=== PATIENT | female | born 1995 | race Caucasian/White ===

== ENCOUNTER 2017-12-14 22:34 | Emergency (ER) | payer SELFPAY ==
[~2017-12-14] VITALS: Ht 175.3 cm; Wt 58.0 kg
[2017-12-14 22:41] VITALS: BP 139/70; PULSE 105; RESP 18; TEMP 98.1; O2SAT 98
--- NOTE | 2017-12-14 22:58 | PD ---
HPI Chief Complaint: Seizure Time Seen by Provider: 22:45 Travel History International Travel<30 days: No Contact w/Intl Traveler<30days: No Traveled to known affect area: No History of Present Illness HPI The patient is a 22 year old female who presents to the [facility] emergency department with a history of seizure activity that was witnessed by her sister prior to arrival. The patient has no prior history of seizure disorder. The patient was witnessed to have approximately 15 seconds of generalized tonic-clonic seizure activity. The patient was noted to have a postictal state with drowsiness and confusion. Ambulance services arrived and the patient continued to be confused with a GCS of 14 and drowsiness. The patient on arrival is becoming more awake and alert and oriented. She denies having any recent headaches, neck pain, fevers or chills, cough or congestion. She denies having any other recent neurologic symptoms. She denies on review of systems having any chest pain, shortness of breath, abdominal pain, vomiting , diarrhea, or urinary symptoms. LMP: November 16, 2017 [facility] Past Medical History Narrative Medical The patient's past medical history is significant for having ovarian cyst. Medical History: Denies Significant Hx Tetanus Vaccination: Unknown Influenza Vaccination: No ?: Not LMP: 11/16/16 Past Surgical History Narrative Surgical The patient's past surgical history is reportedly none. Surgical History: No Previous Surgery Social History Alcohol Use: No Tobacco Use: Yes (One half pack per day) Substance Use: No (The patient reports that she quit using marijuana and alcohol 2-3 months ago.) Allergies-Medications (Allergen,Severity, Reaction): Coded Allergies: No Known Allergies (Verified Allergy, Unknown, 12/14/17) Reported Meds & Prescriptions Reported Meds & Active Scripts Active No Active Prescriptions or Reported Medications Review of Systems Except as stated in HPI: all other systems reviewed are Neg General / Constitutional: No: Fever Eyes: No: Visual changes HENT: No: Headaches Cardiovascular: No: Chest Pain or Discomfort Respiratory: No: Shortness of Breath Gastrointestinal: No: Abdominal Pain Genitourinary: No: Dysuria Musculoskeletal: No: Pain Skin: No Rash Neurologic: Positive: Change in Mentation, Seizures, No: Weakness, Focal Abnormalities, Slurred Speech, Sensory Disturbance Psychiatric: No: Depression Endocrine: No: Polydipsia Hematologic/Lymphatic: No: Easy Bruising Physical Exam Narrative General: The patient is a well-developed well-nourished female in no acute distress. Head and Neck exam: Head is normocephalic atraumatic. Eyes: EOMI, pupils are equal round and reactive to light. Nose: Midline septum with pink mucous membranes Mouth: Dentition unremarkable. Moist mucus membranes. Posterior oropharynx is not erythematous. No tonsillar hypertrophy. Uvula midline. Airway patent. Neck: No palpable lymphadenopathy. No nuchal rigidity. No thyromegaly. Cardiovascular: Sinus tachycardia in the low 100 without murmurs, gallops, or rubs. No pulse deficit to the extremities on simultaneous auscultation and palpation of her radial artery. Lungs: Clear to auscultation bilaterally. No wheezes, rhonchi, or rales. Abdomen: Soft, without tenderness to palpation in all 4 quadrants of the abdomen. No guarding, rebound, or rigidity. Normal bowel sounds are audible. No tenderness on palpation of McBurney's point. Negative Burciaga sign Extremities: No clubbing, cyanosis, or edema. 2+ pulses in all 4 extremities. No calf tenderness on palpation. Back: No spinous process tenderness to palpation. No costovertebral angle tenderness to palpation. Neurologic Exam: Cranial nerves 2-12 were intact on exam. Strength is 5/5 in all 4 extremities. No sensory deficits noted. The patient is oriented to person, place, time, and situation at this point. Skin Exam: No rash noted. Intact skin that is warm and dry. Data Data Last Documented VS Vital Signs Date Time Temp Pulse Resp B/P (MAP) Pulse Ox O2 Delivery O2 Flow Rate FiO2 12/14/17 23:04 98 Room Air 12/14/17 22:41 98.1 105 18 139/70 (93) Orders Orders Electrocardiogram (12/14/17 22:45) Complete Blood Count With Diff (12/14/17 22:45) Comprehensive Metabolic Panel (12/14/17 22:45) Prothrombin Time / Inr (Pt) (12/14/17 22:45) Act Partial Throm Time (Ptt) (12/14/17 22:45) Lipase (12/14/17 22:45) Urinalysis - C+S If Indicated (12/14/17 22:45) Magnesium (Mg) (12/14/17 22:45) Thyroid Stimulating Hormone (3/27/18 22:45) Chest, Single Ap (12/14/17 22:45) Ct Brain W/O Iv Contrast(Rout) (12/14/17 22:45) Iv Access Insert/Monitor (12/14/17 22:45) Ecg Monitoring (12/14/17 22:45) Oximetry (12/14/17 22:45) Ed Urine Pregnancytest Poc (12/14/17 22:45) Drug Screen, Random Urine (12/14/17 22:45) Alcohol (Ethanol) (12/14/17 22:45) Salicylates (Aspirin) (12/14/17 22:45) Tylenol (Acetaminophen) (12/14/17 22:45) Labs Laboratory Tests Test 12/14/17 22:50 12/14/17 23:00 White Blood Count 10.5 TH/MM3 Red Blood Count 4.45 MIL/MM3 Hemoglobin 14.4 GM/DL Hematocrit 41.5 % Mean Corpuscular Volume 93.3 FL Mean Corpuscular Hemoglobin 32.4 PG Mean Corpuscular Hemoglobin Concent 34.7 % Red Cell Distribution Width 13.1 % Platelet Count 253 TH/MM3 Mean Platelet Volume 8.6 FL Neutrophils (%) (Auto) 52.1 % Lymphocytes (%) (Auto) 35.3 % Monocytes (%) (Auto) 7.8 % Eosinophils (%) (Auto) 4.3 % Basophils (%) (Auto) 0.5 % Neutrophils # (Auto) 5.5 TH/MM3 Lymphocytes # (Auto) 3.7 TH/MM3 Monocytes # (Auto) 0.8 TH/MM3 Eosinophils # (Auto) 0.5 TH/MM3 Basophils # (Auto) 0.1 TH/MM3 CBC Comment DIFF FINAL Differential Comment Prothrombin Time 10.2 SEC Prothromb Time International Ratio 1.0 RATIO Activated Partial Thromboplast Time 24.4 SEC Blood Urea Nitrogen 17 MG/DL Creatinine 0.93 MG/DL Random Glucose 72 MG/DL Total Protein 7.5 GM/DL Albumin 3.7 GM/DL Calcium Level 8.7 MG/DL Magnesium Level 2.0 MG/DL Alkaline Phosphatase 74 U/L Aspartate Amino Transf (AST/SGOT) 31 U/L Alanine Aminotransferase (ALT/SGPT) 28 U/L Total Bilirubin 0.2 MG/DL Sodium Level 139 MEQ/L Potassium Level 4.1 MEQ/L Chloride Level 104 MEQ/L Carbon Dioxide Level 25.8 MEQ/L Anion Gap 9 MEQ/L Estimat Glomerular Filtration Rate 74 ML/MIN Lipase 67 U/L Thyroid Stimulating Hormone 3rd Gen 12.900 uIU/ML Salicylates Level 3.4 MG/DL Acetaminophen Level LESS THAN 2.0 MCG/ML Ethyl Alcohol Level LESS THAN 3 MG/DL Urine Color YELLOW Urine Turbidity HAZY Urine pH 6.0 Urine Specific [place] 1.022 Urine Protein TRACE mg/dL Urine Glucose (UA) NEG mg/dL Urine Ketones TRACE mg/dL Urine Occult Blood NEG Urine Nitrite NEG Urine Bilirubin NEG Urine Urobilinogen LESS THAN 2.0 MG/DL Urine Leukocyte Esterase TRACE Urine RBC 1 /hpf Urine WBC 4 /hpf Urine Squamous Epithelial Cells 9 /hpf Urine Hyaline Casts 37 /lpf Urine Granular Casts 7 /lpf Urine Mucus FEW /lpf Microscopic Urinalysis Comment CULT NOT INDICATED Urine Opiates Screen NEG Urine Barbiturates Screen NEG Urine Amphetamines Screen POS Urine Benzodiazepines Screen POS Urine Cocaine Screen NEG Urine Cannabinoids Screen POS MDM Medical Decision Making Medical Screen Exam Complete: Yes Emergency Medical Condition: Yes Medical Record Reviewed: Yes Differential Diagnosis New onset seizure, versus syncope Narrative Course During the course of the patient's emergency department visit, the patient's history, examination, and differential diagnosis were reviewed with the patient. The patient was placed on a engine builder with oximetry and frequent blood pressure monitoring. The patient had IV access obtained and blood work sent for analysis. The patient had a EKG done on arrival that shows a sinus tachycardia rate of 101, QRS duration is 87 ms, QTC is [address] segment elevation, T waves are inverted in V1. CT scan of the brain was ordered , however the patient refused. The patient upon becoming more awake and alert became agitated stating that she needs to go home as she has to work early in the morning. The patient's laboratory studies were not completed. The patient has no one at her bedside that would be able to transport her home. She reports that she would take an Uber. I explained to her that given her symptoms when she came in, I would recommend that prior to her leaving AGAINST MEDICAL ADVICE she had a family member drive her home. She was able to call her sister, however his sister did not answer. Shortly thereafter her mother showed up at the bedside. By the time the patient's mother arrived, the patient's laboratory studies had resulted. The patient's laboratory studies were reviewed and remarkable for a white count of 10.5, hemoglobin 14.4, platelets 253 with 4.3 eosinophils, CMP is remarkable for a glucose of 72, lipase 67, TSH is elevated at 12.9, PT 10.2, PTT 24.4, urinalysis is unremarkable, urine drug screen is positive for amphetamines, benzodiazepines, cannabinoids. Alcohol level less than 3, acetaminophen less than 2, salicylate 3.4. The patient has multiple drugs in her system that could be contributing to seizure activity. This could be a benzodiazepine withdrawal type of seizure, versus lowered seizure threshold from amphetamine use. This was explained to the patient. Patient additionally was noted to have an elevated TSH that is likely related to hypothyroid disorder. The patient was instructed regarding this finding and the importance of following up with the primary care physician to start treatment. Radiology studies were reviewed and remarkable for a chest x-ray that shows no acute pulmonary disease. The patient continued to refuse CT scan of the brain. The patient is resting comfortably and feels better, is alert and in no distress. The patient's results and examination findings were discussed with the patient. The repeat examination is unremarkable and benign. The history, exam, diagnostic testing, and current condition do not suggest any significant pathology to warrant further testing, continued ED treatment, admission, or surgical evaluation at this point. The vital signs have been stable. The patient does not have uncontrollable pain, intractable vomiting, or other significant symptoms. The patient's condition is stable and appropriate for discharge. The patient will pursue further outpatient evaluation with a primary care physician or other designated or consulting physician as indicated in the discharge instructions. The patient expressed understanding and was agreeable with this plan. Diagnosis Primary Impression: Seizure Additional Impressions: Elevated TSH Polysubstance abuse Referrals: [facility] 3 days Patient Instructions: General Instructions, Generalized Tonic Clonic Seizures ( ED), Hypothyroidism (ED), Polysubstance Abuse (ED) Med/Other Pt SpecificInfo: Prescription(s) given, No Meds Exist/No RX given Scripts No Active Prescriptions or Reported Meds Disposition: 01 DISCHARGE HOME Condition: Stable Flakita Chairez MD Dec 14, 2017 22:58
[2017-12-14 23:04] VITALS: O2SAT 98
--- NOTE | 2017-12-14 23:08 | RADRPT ---
EXAM DATE/TIME: 12/14/2017 22:53 [facility] COMPARISON: No previous studies available for comparison. INDICATIONS : Short of breath,seizures. MEDICAL HISTORY : None. SURGICAL HISTORY : None. ENCOUNTER: Initial ACUITY: 1 day PAIN SCORE: 110 LOCATION: Bilateral chest FINDINGS: A single view of the chest demonstrates the lungs to be symmetrically aerated without evidence of mas s, infiltrate or effusion. The cardiomediastinal contours are unremarkable. Osseous structures are intact. CONCLUSION: No acute disease. Jonnie Kapadia MD on December 14, 2017 at 23:06 Board Certified Radiologist. This report was verified electronically.
[2017-12-14 23:15] LABS: AUTOMATED NEUTROPHIL # 5.5 TH/MM3 (1.8-7.7); BASOPHIL # 0.1 TH/MM3 (0-0.2); BASOPHIL % 0.5 % (0.0-2.0); EOSINOPHIL # 0.5 TH/MM3 (0-0.4); EOSINOPHIL % 4.3 % (0.0-4.0); HEMATOCRIT 41.5 % (35.0-46.0); HEMOGLOBIN 14.4 GM/DL (11.6-15.3); LYMPH % 35.3 % (9.0-44.0); LYMPHOCYTE # 3.7 TH/MM3 (1.0-4.8); MEAN CELL VOLUME 93.3 FL (80.0-100.0); MEAN CORPUSCULAR HEMOGLOBIN 32.4 PG (27.0-34.0); MEAN CORPUSCULAR HGB CONC 34.7 % (32.0-36.0); MEAN PLATELET VOLUME 8.6 FL (7.0-11.0); MONO % 7.8 % (0.0-8.0); MONOCYTE # 0.8 TH/MM3 (0-0.9); NEUT % 52.1 % (16.0-70.0); PLATELET COUNT 253 TH/MM3 (150-450); RED BLOOD COUNT 4.45 MIL/MM3 (4.00-5.30); RED CELL DISTRIBUTION WIDTH 13.1 % (11.6-17.2); WHITE BLOOD COUNT 10.5 TH/MM3 (4.0-11.0)
[2017-12-14 23:15] LABS: BILIRUBIN, URINE NEG (NEG); BLOOD, URINE NEG (NEG); GLUCOSE,URINE NEG (NEG); HYALINE CAST, URINE 37 /lpf (RARE); KETONE, URINE TRACE mg/dL (NEG); MUCUS URINE FEW /lpf (OCC); NITRITE,URINE NEG (NEG); SQUAMOUS EPITHELIAL CELL URINE 9 /hpf (0-5); URINE COLOR YELLOW (YELLW/STRAW); URINE LEUKOCYTE ESTERASE TRACE (NEG)
[2017-12-14 23:38] LABS: PROTHROMBIN TIME - PATIENT 10.2 SEC (9.8-11.6)
[2017-12-14 23:42] LABS: ALKALINE PHOSPHATASE 74 U/L (45-117); TOTAL BILIRUBIN ADULT 0.2 MG/DL (0.2-1.0); TOTAL PROTEIN 7.5 GM/DL (6.4-8.2)
[2017-12-14 23:44] LABS: ALBUMIN 3.7 GM/DL (3.4-5.0); ALT (GPT) 28 U/L (10-53); AST (GOT) 31 U/L (15-37); BICARBONATE 25.8 MEQ/L (21.0-32.0); BLOOD UREA NITROGEN 17 MG/DL (7-18); CALCIUM 8.7 MG/DL (8.5-10.1); CHLORIDE 104 MEQ/L (98-107); CREATININE 0.93 MG/DL (0.50-1.00); GLOMERULAR FILTRATION RATE 74 ML/MIN (>89); GLUCOSE,RANDOM 72 MG/DL (74-106); SODIUM (NA) 139 MEQ/L (136-145)
[2017-12-14 23:45] LABS: ACETAMINOPHEN LESS THAN 2.0 MCG/ML (10.0-30.0)
--- NOTE | 2017-12-15 22:35 | EKG ---
Date Performed: 12/14/2017 Time Performed: 22:39:16 PTAGE: 22 years EKG: SINUS TACHYCARDIA ABNORMAL RHYTHM ECG NO PREVIOUS TRACING DOCTOR: Gay Holder Interpretating Date/Time 12/15/2017 22:35:16
== END 2017-12-15 00:22 | disposition home or self-care (01) ==
LOC: NEPC 22:34
DX: R56.9 Unspecified convulsions (principal); R94.6 Abnormal results of thyroid function studies; F15.10 Other stimulant abuse, uncomplicated; F19.10 Other psychoactive substance abuse, uncomplicated; F12.10 Cannabis abuse, uncomplicated; R00.0 Tachycardia, unspecified; R94.31 Abnormal electrocardiogram [ECG] [EKG]; F17.200 Nicotine dependence, unspecified, uncomplicated
CPT/HCPCS: 71045; 80053; 80307; 81001; 83690; 83735; 84443; 84703; 85025; 85610; 85730; 93005